=== PATIENT | female | born 1990 | race Caucasian/White ===

== ENCOUNTER 2018-07-20 23:56 | Emergency (ER) | payer MEDICAID | END 2018-07-21 01:06 | disposition home or self-care (01) | LOC: FTE 23:56 | DX: J06.9 Acute upper respiratory infection, unspecified (principal) | CPT/HCPCS: 99283; Z7502 ==

== ENCOUNTER 2019-01-08 16:29 | Inpatient (IN) | payer MEDICAID ==
[2019-01-08 17:43] LABS: ADD MAN DIFF? NO
[2019-01-08 17:45] LABS: BASOPHILS % 0.3 % (0.0-2.0); EOSINOPHILS % 0.2 % (0.0-7.0); HEMATOCRIT 34.2 % (37.0-47.0); HEMOGLOBIN 11.3 g/dl (12.0-16.0); LYMPHOCYTES # 1.6 10^3/ul (0.8-2.9); LYMPHOCYTES % 18.4 % (15.0-51.0); MEAN CORPUSCULAR HEMOGLOBIN 27.6 pg (29.0-33.0); MEAN CORPUSCULAR VOLUME 83.4 fl (82.0-101.0); MONOCYTE # 0.8 10^3/ul (0.3-0.9); MONOCYTES % 9.2 % (0.0-11.0); NEUTROPHIL # 6.1 10^3/ul (1.6-7.5); NEUTROPHILS % 70.7 % (39.0-77.0); NUCLEATED RED BLOOD CELLS% 0.2 /100WBC (0.0-0.0); PLATELET COUNT 116 10^3/UL (140-415); RED CELL DISTRIBUTION WIDTH 15.6 % (11.5-14.5)
[2019-01-08 17:45] LABS: WHITE BLOOD COUNT 8.6 10^3/ul (4.8-10.8)
[2019-01-08 18:05] LABS: INR 0.89; PARTIAL THROMBOPLASTIN TIME 25.6 Sec (23.0-35.0); PROTIME 12.2 Sec (11.9-14.9)
[2019-01-08 18:16] LABS: ALANINE AMINOTRANSFERASE 19 IU/L (13-69); ALBUMIN 3.4 g/dl (3.3-4.9); ALBUMIN/GLOBULIN RATIO 1.13; ALKALINE PHOSPHATASE 268 IU/L (42-121); ANION GAP 8 (5-13); ASPARTATE AMINO TRANSFERASE 17 IU/L (15-46); BILIRUBIN,INDIRECT 0.4 mg/dl (0-1.1); BILIRUBIN,TOTAL 0.4 mg/dl (0.2-1.3); BLOOD UREA NITROGEN 10 mg/dl (7-20); CALCIUM 9.5 mg/dl (8.4-10.2); CARBON DIOXIDE 22 mmol/L (21-31); CHLORIDE 108 mmol/L (97-110); Estimated GFR > 60 mL/min (>60); GLUCOSE 78 mg/dl (70-220); SODIUM 138 mmol/L (135-144); TOTAL PROTEIN 6.4 g/dl (6.1-8.1); URIC ACID 5.3 mg/dl (3.1-7.9)
[2019-01-08] MEDS: LACTATED RINGER'S 1,000 ML IV (18:40)
[2019-01-08] MEDS: MAGNESIUM SULFATE 4 GM/100 ML 100 ML IV (18:44)
[2019-01-08 18:48] LABS: ADD UMIC YES; UR ASCORBIC ACID NEGATIVE (NEGATIVE); UR BACTERIA FEW /HPF (NONE SEEN); UR BILIRUBIN (Dip) NEGATIVE (NEGATIVE); UR BLOOD (Dip) 1+ mg/dL (NEGATIVE); UR CLARITY SLIGHTLY CLOUDY (CLEAR); UR COLOR STRAW (YELLOW); UR GLUCOSE (Dip) NEGATIVE (NEGATIVE); UR KETONES (Dip) NEGATIVE (NEGATIVE); UR LEUKOCYTE ESTERASE (Dip) NEGATIVE Leu/ul (NEGATIVE); UR NITRITE (Dip) NEGATIVE (NEGATIVE); UR RBC 2 /HPF (0-5); UR SPECIFIC GRAVITY (Dip) 1.011 (1.003-1.030); UR SQUAMOUS EPITHELIAL CELL FEW /HPF (FEW); UR TOTAL PROTEIN (Dip) 2+ mg/dl (NEGATIVE); UR UROBILINOGEN (Dip) NEGATIVE (NEGATIVE); UR WBC 0 /HPF (0-5)
[2019-01-08] MEDS: MAGNESIUM SULFATE 20 GM/500 ML 500 ML IV (19:04)
[2019-01-08] MEDS: LABETALOL HCL 20MG INJ IV (19:28)
[2019-01-08] MEDS: BETAMET NA PHOS/AC(6 MG/ML) 2 ML INJ SYG IM (21:14)
[2019-01-09 01:10] LABS: MAGNESIUM 3.8 mg/dl (1.7-2.5)
[2019-01-09] MEDS: MAGNESIUM SULFATE 20 GM/500 ML 500 ML IV ×2 (04:02→13:30)
[2019-01-09] MEDS: LACTATED RINGER'S 1,000 ML IV ×3 (06:14→19:33)
[2019-01-09 07:22] LABS: MAGNESIUM 4.4 mg/dl (1.7-2.5)
[2019-01-09] MEDS: PRENATAL VITAMIN PO (09:14)
[2019-01-09] MEDS: FERROUS SULFATE (EC) 325 MG TAB PO (09:14)
[2019-01-09] MEDS: SENNA TAB PO (12:10)
[2019-01-09 13:28] LABS: MAGNESIUM 4.9 mg/dl (1.7-2.5)
[2019-01-09 15:05] LABS: RAPID PLASMA REAGIN NONREACTIVE (NR)
[2019-01-09] MEDS: BETAMET NA PHOS/AC(6 MG/ML) 2 ML INJ SYG IM (21:11)
[2019-01-10] MEDS: MAGNESIUM SULFATE 20 GM/500 ML 500 ML IV ×3 (00:23→18:48)
[2019-01-10 00:57] LABS: MAGNESIUM 4.4 mg/dl (1.7-2.5)
[2019-01-10] MEDS: CALCIUM CARBONATE 500 MG CHEW TAB PO ×2 (02:19→14:39)
[2019-01-10 07:00] LABS: MAGNESIUM 4.7 mg/dl (1.7-2.5)
[2019-01-10 08:12] LABS: CREATININE 0.52 mg/dl (0.44-1.00)
[2019-01-10 08:18] LABS: COLLECTION PERIOD 24 hrs; CREATININE CLEARANCE 204.9 mls/min (84.0-162.0); CREATININE,URINE RANDOM 38.12 mg/dl (20-320); SCRET 0.52 mg/dl (0.44-1.00); VOLUME 4025 ml/24hrs
[2019-01-10 08:21] LABS: COLLECTION PERIOD 24 hrs; VOLUME 4025 mls
[2019-01-10 08:22] LABS: 24HR URINE TOTAL PROTEIN > 600.0 mg/24hrs (42.0-225.0)
[2019-01-10] MEDS: FERROUS SULFATE (EC) 325 MG TAB PO (09:00)
[2019-01-10] MEDS: LACTATED RINGER'S 1,000 ML IV ×3 (09:26→18:21)
[2019-01-10] MEDS: SENNA TAB PO (10:39)
[2019-01-10] MEDS: PRENATAL VITAMIN PO (10:39)
[2019-01-10 10:53] LABS: ADD MAN DIFF? NO
[2019-01-10 10:54] LABS: WHITE BLOOD COUNT 11.7 10^3/ul (4.8-10.8)
[2019-01-10 10:54] LABS: ABNORMAL IP MESSAGE 1; BASOPHILS % 0.2 % (0.0-2.0); EOSINOPHILS % 0.1 % (0.0-7.0); HEMOGLOBIN 10.6 g/dl (12.0-16.0); LYMPHOCYTES # 1.1 10^3/ul (0.8-2.9); LYMPHOCYTES % 9.5 % (15.0-51.0); MEAN CORPUSCULAR HEMOGLOBIN 27.8 pg (29.0-33.0); MEAN CORPUSCULAR HGB CONC 32.1 g/dl (32.0-37.0); MEAN CORPUSCULAR VOLUME 86.6 fl (82.0-101.0); MEAN PLATELET VOLUME 11.2 fl (7.4-10.4); MONOCYTE # 0.6 10^3/ul (0.3-0.9); MONOCYTES % 4.9 % (0.0-11.0); NEUTROPHIL # 9.4 10^3/ul (1.6-7.5); NEUTROPHILS % 79.8 % (39.0-77.0); NUCLEATED RED BLOOD CELLS # 0.1 10^3/ul (0.0-0.0); NUCLEATED RED BLOOD CELLS% 0.8 /100WBC (0.0-0.0); PLATELET COUNT 125 10^3/UL (140-415); RED BLOOD COUNT 3.81 10^6/ul (4.20-5.40); RED CELL DISTRIBUTION WIDTH 15.9 % (11.5-14.5)
[2019-01-10 10:56] LABS: POSITIVE DIFF @See below
[2019-01-10 10:59] LABS: ADD UMIC YES; UR ASCORBIC ACID NEGATIVE (NEGATIVE); UR BACTERIA FEW /HPF (NONE SEEN); UR BILIRUBIN (Dip) NEGATIVE (NEGATIVE); UR BLOOD (Dip) 2+ mg/dL (NEGATIVE); UR CLARITY CLEAR (CLEAR); UR COLOR STRAW (YELLOW); UR GLUCOSE (Dip) NEGATIVE (NEGATIVE); UR KETONES (Dip) NEGATIVE (NEGATIVE); UR LEUKOCYTE ESTERASE (Dip) NEGATIVE Leu/ul (NEGATIVE); UR MUCUS FEW /HPF (NONE SEEN); UR NITRITE (Dip) NEGATIVE (NEGATIVE); UR RBC 1 /HPF (0-5); UR TOTAL PROTEIN (Dip) 1+ mg/dl (NEGATIVE); UR UROBILINOGEN (Dip) NEGATIVE (NEGATIVE); UR WBC 1 /HPF (0-5)
[2019-01-10 11:14] LABS: ALANINE AMINOTRANSFERASE 15 IU/L (13-69); ALBUMIN 3.5 g/dl (3.3-4.9); ALKALINE PHOSPHATASE 325 IU/L (42-121); ANION GAP 9 (5-13); ASPARTATE AMINO TRANSFERASE 18 IU/L (15-46); BILIRUBIN,INDIRECT 0.4 mg/dl (0-1.1); BILIRUBIN,TOTAL 0.4 mg/dl (0.2-1.3); BLOOD UREA NITROGEN 8 mg/dl (7-20); CALCIUM 7.5 mg/dl (8.4-10.2); CARBON DIOXIDE 22 mmol/L (21-31); CHLORIDE 109 mmol/L (97-110); CREATININE 0.48 mg/dl (0.44-1.00); Estimated GFR > 60 mL/min (>60); GLUCOSE 116 mg/dl (70-220); POTASSIUM 4.5 mmol/L (3.5-5.1); SODIUM 140 mmol/L (135-144); URIC ACID 5.3 mg/dl (3.1-7.9)
[2019-01-10 11:15] LABS: INR 0.88; PT RATIO 0.9
[2019-01-10 11:16] LABS: PARTIAL THROMBOPLASTIN TIME 23.9 Sec (23.0-35.0)
[2019-01-10] MEDS ORDERED: DEXTROSE 5%-LR 1,000 ML IV (11:43)
[2019-01-10] MEDS ORDERED: IBUPROFEN 600 MG TAB PO (12:00)
[2019-01-10] MEDS ORDERED: CARBOPROST 250 MCG INJ IM (12:00)
[2019-01-10] MEDS ORDERED: MISOPROSTOL 200 MCG TAB PR (12:00)
[2019-01-10] MEDS ORDERED: BUTORPHANOL 2 MG INJ IV ×2 (12:00)
[2019-01-10] MEDS ORDERED: LIDOCAINE 1% (MPF) 30 ML INJ INJ (12:00)
[2019-01-10] MEDS ORDERED: OXYTOCIN 30 UNITS/LR 500 ML IV ×2 (12:00)
[2019-01-10 12:06] LABS: ANISOCYTOSIS 1+ (0-0); BAND NEUTROPHILS #M 0.4 10^3/ul (0.0-0.6); BAND NEUTROPHILS % (M) 4 % (0-4); BURR CELLS 1+ (0-0); DIMORPHIC RBC 1+ (0-0); GIANT THROMBO% (M) 1 % (0-0); LYMPHOCYTES #M 0.7 10^3/ul (0.8-2.9); LYMPHOCYTES % (M) 6 % (15-51); METAMYELOCYTES #M 0.2 10^3/ul (0.0-0.0); METAMYELOCYTES %M 2 % (0-0); MONOCYTE #M 0.5 10^3/ul (0.3-0.9); MONOCYTES % (M) 5 % (0-11); PLATELET ESTIMATE DECREASED; POLYCHROMASIA 2+ (0-0); SEG NEUT #M 9.8 10^3/ul (1.6-7.5); SEGMENTED NEUTROPHILS (M) % 83 % (39-77); SMUDGE%M 1 % (0-0); STOMATOCYTES 1+ (0-0); TEAR DROP CELLS 1+ (0-0)
[2019-01-10] MEDS: MISOPROSTOL 50 MCG CAPSULE PO (12:54)
[2019-01-10] MEDS: AMPICILLIN 2 GM/NS (PMX) 100 ML IV (13:12)
[2019-01-10] MEDS ORDERED: FENTAnyl 2MCG/ML-ROPIV 0.2% 100 ML (17:26)
[2019-01-10] MEDS ORDERED: FENTAnyl 2MCG/ML-ROPIV 0.2% 100 ML BAG EPI (17:30)
[2019-01-10] MEDS ORDERED: NALOXONE (0.4 MG/ML) INJ IV (17:30)
[2019-01-10] MEDS ORDERED: DIPHENHYDRAMINE 50 MG INJ IV (17:30)
[2019-01-10] MEDS ORDERED: ONDANSETRON 4 MG INJ IV (17:30)
[2019-01-10] MEDS: AMPICILLIN 1 GM/NS (PMX) 50 ML IV ×2 (18:21→22:14)
[2019-01-10] MEDS: OXYTOCIN 30 UNITS/LR 500 ML IV (18:46)
[2019-01-11] MEDS: OXYTOCIN 30 UNITS/LR 500 ML IV ×2 (00:27→04:20)
[2019-01-11] MEDS ORDERED: NACL 0.9% 3 ML SYG IV ×2 (00:30)
[2019-01-11] MEDS ORDERED: MISOPROSTOL 200 MCG TAB PR (00:30)
[2019-01-11] MEDS ORDERED: CARBOPROST 250 MCG INJ IM (00:30)
[2019-01-11] MEDS ORDERED: CA GLUCONATE (GM) 10% 10ML INJ IV (00:30)
[2019-01-11] MEDS ORDERED: OXYTOCIN 30 UNITS/LR 500 ML IV (00:30)
[2019-01-11] MEDS ORDERED: OXYCODONE/ASPIRIN (4.88/325) TAB PO ×2 (00:30)
[2019-01-11] MEDS ORDERED: ACETAMINOPHEN 325 MG TAB PO (00:30)
[2019-01-11] MEDS ORDERED: ONDANSETRON 4 MG INJ IV (00:30)
[2019-01-11 01:05] LABS: MAGNESIUM 5.2 mg/dl (1.7-2.5)
[2019-01-11] MEDS: MAGNESIUM SULFATE 20 GM/500 ML 500 ML IV ×3 (04:20→20:13)
[2019-01-11] MEDS: LANOLIN HPA 1 PKT TOP (04:20)
[2019-01-11] MEDS: WITCH HAZEL/GLYCERIN PAD PR (04:20)
[2019-01-11] MEDS: IBUPROFEN 600 MG TAB PO ×4 (06:24→23:46)
[2019-01-11] MEDS: hydrALAzine 20 MG INJ IV (06:25)
[2019-01-11 08:38] LABS: MAGNESIUM 4.7 mg/dl (1.7-2.5)
[2019-01-11] MEDS ORDERED: SENNA/DOCUSATE NA (8.6MG/50MG) TAB PO (09:00)
[2019-01-11] MEDS: LABETALOL HCL 20MG INJ IV (09:12)
[2019-01-11] MEDS: LABETALOL 200 MG TAB PO ×2 (10:30→21:02)
[2019-01-11] MEDS: LACTATED RINGER'S 1,000 ML IV (11:29)
[2019-01-11 13:49] LABS: MAGNESIUM 4.8 mg/dl (1.7-2.5)
[2019-01-11] MEDS: MAGNESIUM SULFATE 2 GM/50 ML 50 ML IVPB (17:30)
[2019-01-11 18:27] LABS: MAGNESIUM 4.4 mg/dl (1.7-2.5)
[2019-01-11] MEDS: SENNA/DOCUSATE NA (8.6MG/50MG) TAB PO (21:01)
[2019-01-12] MEDS: LACTATED RINGER'S 1,000 ML IV (00:05)
[2019-01-12] MEDS: IBUPROFEN 600 MG TAB PO ×4 (05:53→23:49)
[2019-01-12 08:14] LABS: ADD MAN DIFF? NO
[2019-01-12 08:17] LABS: BASOPHILS % 0.4 % (0.0-2.0); EOSINOPHILS % 0.1 % (0.0-7.0); HEMATOCRIT 31.9 % (37.0-47.0); HEMOGLOBIN 10.1 g/dl (12.0-16.0); LYMPHOCYTES # 2.3 10^3/ul (0.8-2.9); LYMPHOCYTES % 22.3 % (15.0-51.0); MEAN CORPUSCULAR HEMOGLOBIN 27.6 pg (29.0-33.0); MEAN CORPUSCULAR HGB CONC 31.7 g/dl (32.0-37.0); MEAN CORPUSCULAR VOLUME 87.2 fl (82.0-101.0); MEAN PLATELET VOLUME 11.1 fl (7.4-10.4); MONOCYTES % 9.4 % (0.0-11.0); NEUTROPHIL # 6.8 10^3/ul (1.6-7.5); NEUTROPHILS % 65.2 % (39.0-77.0); NUCLEATED RED BLOOD CELLS # 0.1 10^3/ul (0.0-0.0); NUCLEATED RED BLOOD CELLS% 0.6 /100WBC (0.0-0.0); PLATELET COUNT 104 10^3/UL (140-415); RED BLOOD COUNT 3.66 10^6/ul (4.20-5.40); RED CELL DISTRIBUTION WIDTH 16.4 % (11.5-14.5)
[2019-01-12 08:17] LABS: WHITE BLOOD COUNT 10.5 10^3/ul (4.8-10.8)
[2019-01-12] MEDS: LABETALOL 200 MG TAB PO ×2 (08:40→20:58)
[2019-01-12] MEDS ORDERED: LABETALOL HCL 20MG INJ IV (13:30)
[2019-01-12 14:37] LABS: ADD MAN DIFF? NO
[2019-01-12 14:39] LABS: ADD UMIC YES; UR ASCORBIC ACID NEGATIVE (NEGATIVE); UR BILIRUBIN (Dip) NEGATIVE (NEGATIVE); UR BLOOD (Dip) 2+ mg/dL (NEGATIVE); UR CLARITY CLEAR (CLEAR); UR COLOR STRAW (YELLOW); UR GLUCOSE (Dip) NEGATIVE (NEGATIVE); UR KETONES (Dip) NEGATIVE (NEGATIVE); UR LEUKOCYTE ESTERASE (Dip) NEGATIVE Leu/ul (NEGATIVE); UR NITRITE (Dip) NEGATIVE (NEGATIVE); UR RBC 19 /HPF (0-5); UR SPECIFIC GRAVITY (Dip) 1.015 (1.003-1.030); UR SQUAMOUS EPITHELIAL CELL FEW /HPF (FEW); UR TOTAL PROTEIN (Dip) 2+ mg/dl (NEGATIVE); UR UROBILINOGEN (Dip) NEGATIVE (NEGATIVE); UR WBC 2 /HPF (0-5)
[2019-01-12 14:41] LABS: BASOPHILS % 0.4 % (0.0-2.0); EOSINOPHILS % 0.2 % (0.0-7.0); HEMATOCRIT 31.3 % (37.0-47.0); HEMOGLOBIN 10.1 g/dl (12.0-16.0); LYMPHOCYTES # 2.2 10^3/ul (0.8-2.9); LYMPHOCYTES % 21.1 % (15.0-51.0); MEAN CORPUSCULAR HEMOGLOBIN 28.3 pg (29.0-33.0); MEAN CORPUSCULAR HGB CONC 32.3 g/dl (32.0-37.0); MEAN CORPUSCULAR VOLUME 87.7 fl (82.0-101.0); MEAN PLATELET VOLUME 10.8 fl (7.4-10.4); MONOCYTES % 9.3 % (0.0-11.0); NEUTROPHIL # 6.9 10^3/ul (1.6-7.5); NUCLEATED RED BLOOD CELLS% 0.4 /100WBC (0.0-0.0); PLATELET COUNT 109 10^3/UL (140-415); RED BLOOD COUNT 3.57 10^6/ul (4.20-5.40); RED CELL DISTRIBUTION WIDTH 16.2 % (11.5-14.5)
[2019-01-12 14:41] LABS: WHITE BLOOD COUNT 10.2 10^3/ul (4.8-10.8)
[2019-01-12 15:00] LABS: ALANINE AMINOTRANSFERASE 33 IU/L (13-69); ALBUMIN 3.2 g/dl (3.3-4.9); ALBUMIN/GLOBULIN RATIO 1.03; ALKALINE PHOSPHATASE 197 IU/L (42-121); ANION GAP 7 (5-13); ASPARTATE AMINO TRANSFERASE 22 IU/L (15-46); BILIRUBIN,INDIRECT 0.4 mg/dl (0-1.1); BILIRUBIN,TOTAL 0.4 mg/dl (0.2-1.3); BLOOD UREA NITROGEN 12 mg/dl (7-20); CALCIUM 8.5 mg/dl (8.4-10.2); CARBON DIOXIDE 25 mmol/L (21-31); CHLORIDE 107 mmol/L (97-110); CREATININE 0.49 mg/dl (0.44-1.00); Estimated GFR > 60 mL/min (>60); GLUCOSE 101 mg/dl (70-220); POTASSIUM 4.1 mmol/L (3.5-5.1); SODIUM 139 mmol/L (135-144); TOTAL PROTEIN 6.3 g/dl (6.1-8.1); URIC ACID 4.8 mg/dl (3.1-7.9)
[2019-01-13] MEDS: IBUPROFEN 600 MG TAB PO ×2 (05:51→11:49)
[2019-01-13] MEDS ORDERED: MEASLES,MUMPS,RUBELLA VACCINE INJ SC* (09:00)
[2019-01-13] MEDS: LABETALOL 200 MG TAB PO (09:19)
== END 2019-01-13 13:40 | disposition home or self-care (01) | DRG 807 ==
LOC: OBT 16:29 → PP1 01-11 02:15 → L-D 16:32 → OBT 17:45 → L-D 01-10 16:58
PROC: 10E0XZZ Delivery of Products of Conception, External Approach (ICD-10-PCS; principal; 2019-01-11)
PROC: 3E033VJ Introduction of Other Hormone into Peripheral Vein, Percutaneous Approach (ICD-10-PCS; 2019-01-11)
DX: O60.13X0 Preterm labor second trimester with preterm delivery third trimester, not applicable or unspecified (principal); Z37.0 Single live birth; O24.419 Gestational diabetes mellitus in pregnancy, unspecified control; O14.14 Severe pre-eclampsia complicating childbirth; Z3A.35 35 weeks gestation of pregnancy
CPT/HCPCS: 62322; 76815; 76818; 80053; 81001; 82565; 82575; 82962; 83735; 84156; 84560; 85025; 85384; 85610; 85730; 86592; 86850; 86900; 86901; 99464